=== PATIENT | female | born 2000 | race Caucasian/White ===

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

== ENCOUNTER 2019-09-18 14:55 | Emergency (ER) | payer BC, OTHER ==
--- NOTE | 2019-09-18 16:21 | UC ---
Head Injury HPI - HPI Summary HPI Summary: Patient is 18 year old female , who present today to the urgent care with a head injury yesterday at work. She works at [employer] in [place]. She was trying to lift something and hit left side of top of head on a metal bar yesterday at work, denies any loss of consciousness . Associated neck pain. She did have some nausea yesterday but no episode of vomiting. Sometimes feels dizzy but which is not constant and is better. No nausea today. Continues to have a headache locally at the site on the left side of the head. Took Ibuprofen 800mg at 0730, denies any relief. Here for school note. Denies any visual disturbance. - History Of Current Complaint Stated Complaint: HEAD INJURY-WC Time Seen by Provider: 09/18/19 16:18 Hx Obtained From: Patient Hx Last Menstrual Period: unknown, Kyleena IUD - Allergies/Home Medications Allergies/Adverse Reactions: Allergies Allergy/AdvReac Type Severity Reaction Status Date / Time amoxicillin Allergy Diarrhea Verified 09/18/19 16:30 Penicillins Allergy Rash Verified 09/18/19 16:30 Home Medications: Home Medications Ibuprofen TAB* [Motrin TAB* 800 MG] 800 mg PO ONCE 09/18/19 [History Confirmed 09/18/19] PMH/Surg Hx/FS Hx/Imm Hx - Additional Past Medical History Additional PMH: Past Medical History : None Past Surgical History: No Past History of Procedure Family History : non contributory Social History : Occasional alcohol, non smoker, no drug use. Student at [employer] and works at [employer] . Previously Healthy: Yes - Surgical History Surgical History: None - Family History Known Family History: Positive: Hypertension, Diabetes, Non-Contributory - Social History Alcohol Use: Occasionally Substance Use Type: None Smoking Status (MU): Never Smoked Tobacco Have You Smoked in the Last Year: No - Immunization History Most Recent Influenza Vaccination: Not the 2015/2016 Season Vaccination Up to Date: Yes Review of Systems All Other Systems Reviewed And Are Negative: Yes Constitutional: Positive: Negative Skin: Positive: Negative Eyes: Positive: Negative ENT: Positive: Negative Respiratory: Positive: Negative Cardiovascular: Positive: Negative Gastrointestinal: Positive: Negative Genitourinary: Positive: Negative Motor: Positive: Negative Neurovascular: Positive: Negative Musculoskeletal: Positive: Arthralgia - Neck pain Neurological: Positive: Headache Psychological: Positive: Negative Is Patient Immunocompromised?: No Physical Exam - Summary Physical Exam Summary: Physical Exam: Const: Appears well. No signs of apparent distress present. Alert and oriented x 3. Musculo: Walks with a normal gait. Head/Face: Atraumatic, normocephalic on inspection. There is tenderness to palpation in the left parietal area but no bruising or swelling is noted. No step off or laceration is noted either. Eyes: EOMI and PERRLA in both eyes. Conjunctivae clear. VOR testing is negative, saccades and smooth pursuits without any discomfort. Convergence at 12 cm ENT: Hearing normal Respiratory: Respirations are unlabored. Lungs clear to auscultation bilaterally, no wheezing , rhonchi or rales noted . CVS: Regular rate and Rhythm, S1S2 normal , no murmurs identified. Extremities: Peripheral circulation is grossly normal. Pulses 2+ Abdomen : Soft non tender , nondistended , Bowel sounds present . No guarding , rebound tenderness or rigidity noted. Skin: No lesions or rash located on the upper extremities or on the lower extremities. Neuro: Cranial nerves II to XII intact, motor and sensory intact. DTR Intact bilaterally. Mood is normal. Affect is normal. GCS: 15 Triage Information Reviewed: Yes Vital Signs Reviewed: Yes Head Injury Course/Dx - Course Course Of Treatment: During the visit today, we discussed the findings and further plan. Patient expressed understanding . - Differential Dx/Diagnosis Provider Diagnosis: Concussion Discharge ED - Sign-Out/Discharge Documenting (check all that apply): Patient Departure All imaging exams completed and their final reports reviewed: No Studies - Discharge Plan Condition: Stable Disposition: HOME Patient Education Materials: Concussion (ED) Forms: *School Release, *Work Release Referrals: [facility] [Outside] - 2 Days No Primary Care Phys,NOPCP [Primary Care Provider] - Additional Instructions: You have sustained a concussion . Take Tylenol as needed for headaches Follow up with primary care doctor in 2 days. School note provided today Return to Urgent care / ER if symptoms get worse. - Billing Disposition and Condition Condition: STABLE Disposition: Home
[2019-09-18 16:30] VITALS: BP 118/59
== END 2019-09-18 17:02 | disposition home or self-care (01) ==
LOC: UCCORT 14:55
DX: S06.0X0A Concussion without loss of consciousness, initial encounter (principal); Z88.0 Allergy status to penicillin; W22.8XXA Striking against or struck by other objects, initial encounter; Y92.9 Unspecified place or not applicable; Y99.0 Civilian activity done for income or pay
CPT/HCPCS: 99211; G0463

== ENCOUNTER 2019-09-26 15:44 | Emergency (ER) | payer OTHER | END 2019-09-26 16:06 | disposition left against medical advice (07) | LOC: UCCORT 15:44 | DX: Z53.21 Procedure and treatment not carried out due to patient leaving prior to being seen by health care provider (principal) ==